=== PATIENT | female | born 1995 | race Caucasian/White ===

== ENCOUNTER → 2023-08-04 | Outpatient (CLI) | payer SELFPAY, OTHER ==
--- NOTE | 2023-08-04 10:30 | RAD_ITS ---
STUDY: X-RAY - LEFT HAND, ATTENTION THIRD FINGER REASON FOR EXAM: Female, 28 years old. Left middle finger injury TECHNIQUE: 3 view(s) of the finger were obtained. COMPARISON: None. FINDINGS: Normal metacarpal head. Normal metacarpophalangeal joint. Normal proximal phalanx. There is a nondisplaced oblique fracture through the middle phalanx of the third digit. The distal aspect of the fracture line extends into the distal interphalangeal joint. Normal distal phalanx. Normal proximal interphalangeal joint. Normal distal interphalangeal joint. Soft tissue swelling. RAD/Finger(s) Min 2 Views IMPRESSION: Nondisplaced oblique fracture through the middle phalanx of the third digit with extension to the articular surface at the distal interphalangeal joint. Electronically Signed: Demond Honeycutt MD at 11:15 EDT ,
== END | disposition home or self-care (01) ==
LOC: MTRAD 10:29
PROVIDERS: PCP Family Medicine; Referring Provider Physician Assistant Surgical; Visit Provider Physician Assistant Surgical
DX: S69.92XA Unspecified injury of left wrist, hand and finger(s), initial encounter (principal)
CPT/HCPCS: 73140